=== PATIENT | female | born 1980 | race Two or more races ===

== ENCOUNTER 2017-11-23 18:16 | Emergency (ER) | payer MEDICAID ==
[~2017-11-23] VITALS: Ht 162.6 cm; Wt 68.0 kg
[2017-11-23 18:25] VITALS: BP 117/80
[2017-11-23] MEDS ORDERED: UNOBMED (18:30)
[2017-11-23] MEDS ORDERED: KEPPRA500 M4 ORAL (19:07)
[2017-11-23 19:09] LABS: BASOPHILS % (AUTO) 0.9 % (0.0-2.0); EOSINOPHILS % (AUTO) 1.8 % (0.0-3.0); HEMATOCRIT 37.4 % (37.0-47.0); HEMOGLOBIN 12.8 G/DL (12.0-16.0); LYMPHOCYTES % (AUTO) 37.1 % (20.0-45.0); MEAN CORPUSCULAR VOLUME 90 FL (80-99); MONOCYTES % (AUTO) 8.9 % (1.0-10.0); NEUTROPHILS % (AUTO) 51.3 % (45.0-75.0); PLATELET COUNT 254 K/UL (150-450); RED BLOOD COUNT 4.16 M/UL (4.20-5.40)
[2017-11-23 19:12] VITALS: BP 116/73
[2017-11-23 19:14] LABS: ANION GAP 7 mmol/L (5-15); BLOOD UREA NITROGEN 13 mg/dL (7-18); CALCIUM 9.1 MG/DL (8.5-10.1); CARBON DIOXIDE 25 MMOL/L (21-32); CHLORIDE 107 MMOL/L (98-107); CREATININE 1.3 MG/DL (0.55-1.30); POTASSIUM 3.9 MMOL/L (3.5-5.1); SODIUM 139 MMOL/L (136-145)
[2017-11-23 19:18] LABS: ALANINE AMINOTRANSFERASE 107 U/L (12-78); ALBUMIN 3.6 G/DL (3.4-5.0); ALBUMIN/GLOBULIN RATIO 0.9 (1.0-2.7); ALKALINE PHOSPHATASE 89 U/L (46-116); ASPARTATE AMINO TRANSFERASE 45 U/L (15-37); BILIRUBIN,TOTAL 0.3 MG/DL (0.2-1.0)
[2017-11-23] MEDS ORDERED: KEPPRA1000 MG ORAL (19:42)
--- NOTE | 2017-11-23 19:43 | Emergency Room Report ---
History of Present Illness General Chief Complaint: Seizure Source: Patient Present Illness HPI This patient comes in post-ictal. Later her son came to ED and relates two witnessed tonic-clonic sz. Mom has remote history of sz but starting about a month ago started getting them frequently. Most recent prior to today was three days ago and day before that. She had CT head at [facility] four days ago acc to patient. Since then no fever, no trauma. Was started on Keppra 500 BID and has been compliant. No shortness of breath, no travel history, no leg swelling, no chest pain, no diaphoresis, no exertional complaints, no nausea, no vomiting, no diarrhea, no abdominal pain. Tolerating po fine, normal urinary output, normal bm. No syncope, LOC, dizziness, lightheadedness, headache. No recent surgery. Allergies: Coded Allergies: UNABLE TO ASSESS (Unverified , 11/23/17) Patient History Last Menstrual Period: unknown Nursing Documentation-[facility] Past Medical History: No History, Except For Hx Gastrointestinal Problems: Yes - stomach tumor Hx Seizures: Yes Review of Systems Constitutional: Reports: no symptoms Eye: Reports: no symptoms ENT: Reports: no symptoms Respiratory: Reports: no symptoms Cardiovascular: Reports: no symptoms Gastrointestinal: Reports: no symptoms Genitourinary: Reports: no symptoms Musculoskeletal: Reports: no symptoms Skin: Reports: no symptoms Psychiatric: Reports: no symptoms Neurological: Reports: no symptoms Endocrine: Reports: no symptoms Hematologic/Lymphatic: Reports: no symptoms Allergic: Reports: no symptoms Physical Exam Vital Signs Date Time Temp Pulse Resp B/P (MAP) Pulse Ox O2 Delivery O2 Flow Rate FiO2 11/23/17 18:19 97.7 67 16 95/67 99 Room Air 97.7 11/23/17 19:12 2.0 Sp02 EP Interpretation: reviewed, normal General Appearance: normal inspection, well appearing, no apparent distress, alert, GCS 15, non-toxic Head: normocephalic, atraumatic Eyes: bilateral eye normal inspection, bilateral eye PERRL, bilateral eye EOMI ENT: normal ENT inspection, hearing grossly normal, normal pharynx, no angioedema, normal voice, moist mucus membranes Neck: normal inspection, full range of motion, supple, no meningismus, no bony tend Respiratory: normal inspection, lungs clear, normal breath sounds, no rhonchi, no respiratory distress, no retraction, no accessory muscle use, no wheezing Cardiovascular #1: normal inspection, regular rate, rhythm, no edema Gastrointestinal: normal inspection, normal bowel sounds, non tender, soft, no mass, non-distended Musculoskeletal: gait/station normal, normal range of motion Neurologic: normal inspection, alert, oriented x3, responsive, motor strength/ tone normal Psychiatric: normal inspection, judgement/insight normal, memory normal Suicide Risk Assessment: Suicidal Ideation: No Had intent to initiate attempt: No Pt's plan for suicide attempt: No Has means to complete attempt: No Skin: normal inspection, normal color, no rash, warm/dry Medical Decision Making Diagnostic Impression: Primary Impression: Seizure ER Course stable here, will give IV Keppra 1000 and increase to 1000 BID. pt. has neuro appt. on Saturday (two days) no need for repetitive ct head. Last Vital Signs Date Time Temp Pulse Resp B/P (MAP) Pulse Ox O2 Delivery O2 Flow Rate FiO2 11/23/17 19:12 98.0 61 14 116/73 100 Nasal Cannula 2.0 98.0 Disposition: HOME, SELF-CARE Condition: Stable Scripts Levetiracetam (KEPPRA) 1,000 Mg Tablet 1000 MG ORAL BID, #60 TAB 0 Refills Prov: Cayetano Urias M.D. 11/23/17 Patient Instructions: Seizure, Adult Cayetano Urias M.D. Nov 23, 2017 19:43
[2017-11-23] MEDS ORDERED: levETIRAcetam 1,000mg/NS100ml 100 ML IVPB ONE (19:45)
[2017-11-23 20:50] VITALS: BP 102/58
[2017-11-23 20:52] VITALS: BP 102/58
== END 2017-11-23 20:50 | disposition home or self-care (01) ==
LOC: EDBD 18:16 → EMR 19:00
DX: G40.909 Epilepsy, unspecified, not intractable, without status epilepticus (principal)
CPT/HCPCS: 36415; 80053; 80185; 80307; 85025; 96374; 99283; J1953

== ENCOUNTER 2020-05-21 15:20 | Emergency (ER) | payer MEDICAID ==
[~2020-05-21] VITALS: Ht 167.6 cm; Wt 72.6 kg
[~2020-05-21 15:20] MED LIST: KEPPRA1000 MG ORAL; KEPPRA500 M4 ORAL; UNOBMED
[2020-05-21 15:38] VITALS: BP 126/77
[2020-05-21 16:11] LABS: APPEARANCE,URINE SLIGHTLY CLOUDY; BILIRUBIN, URINE NEGATIVE (NEGATIVE); GLUCOSE, URINE (UA) NEGATIVE (NEGATIVE); KETONES,URINE NEGATIVE (NEGATIVE); LEUKOCYTE ESTERASE ,URINE NEGATIVE (NEGATIVE); NITRITE,URINE NEGATIVE (NEGATIVE); PH,URINE 5 (4.5-8.0); PROTEIN,URINE NEGATIVE (NEGATIVE); UROBILINOGEN,URINE NORMAL MG/DL (0.0-1.0)
[2020-05-21 16:12] LABS: COLOR,URINE YELLOW
[2020-05-21 16:46] LABS: BASOPHILS % (AUTO) 0.7 % (0.0-2.0); EOSINOPHILS % (AUTO) 0.6 % (0.0-3.0); HEMATOCRIT 34.6 % (37.0-47.0); HEMOGLOBIN 11.3 G/DL (12.0-16.0); LYMPHOCYTES % (AUTO) 24.9 % (20.0-45.0); MEAN CORPUSCULAR VOLUME 97 FL (80-99); NEUTROPHILS % (AUTO) 67.8 % (45.0-75.0); PLATELET COUNT 231 K/UL (150-450); RED BLOOD COUNT 3.55 M/UL (4.20-5.40); RED CELL DISTRIBUTION WIDTH 13.3 % (11.6-14.8); WHITE BLOOD COUNT 12.5 K/UL (4.8-10.8)
[2020-05-21 16:55] LABS: CALCIUM 8.7 MG/DL (8.5-10.1); CREATININE 1.2 MG/DL (0.55-1.30); POTASSIUM 3.5 MMOL/L (3.5-5.1)
[2020-05-21 17:00] LABS: ALBUMIN 3.3 G/DL (3.4-5.0); ALBUMIN/GLOBULIN RATIO 0.9 (1.0-2.7); BILIRUBIN,TOTAL 0.8 MG/DL (0.2-1.0)
--- NOTE | 2020-05-21 17:08 | Diagnostic Imaging Report ---
EXAM: CT Abdomen and Pelvis Without Intravenous Contrast CLINICAL HISTORY: PAIN TECHNIQUE: Axial computed tomography images of the abdomen and pelvis without intravenous contrast. CTDI is 5.00 mGy and DLP is 285.70 mGy-cm. One or more of the following dose reduction techniques were used: automated exposure control, adjustment of the mA and/or kV according to patient size, use of iterative reconstruction technique. COMPARISON: No relevant prior studies available. FINDINGS: Lung bases: Unremarkable. ABDOMEN: Liver: Unremarkable Gallbladder and bile ducts: Cholecystectomy. Pancreas: Unremarkable. Spleen: Unremarkable. Adrenals: Unremarkable. Kidneys and ureters: No renal calculi or obstructive changes. Stomach and bowel: No micha mural thickening. Nonobstructive bowel gas pattern. PELVIS: Appendix: No evidence of appendicitis. Appendix and cecum are located in the right upper abdomen Bladder: Unremarkable. Reproductive: Dominant follicle in the right ovary. ABDOMEN and PELVIS: Intraperitoneal space: Small amount of fluid in the pelvis. Bones/joints: No acute fracture. Soft tissues: Breast implants. Vasculature: Unremarkable. No abdominal aortic aneurysm. Lymph nodes: No enlarged lymph nodes. IMPRESSION: No evidence of appendicitis.
[2020-05-21] MEDS ORDERED: Ketorolac 30mg Inj IV ONE (17:30)
--- NOTE | 2020-05-21 17:30 | Emergency Room Report ---
History of Present Illness General Chief Complaint: Abdominal Pain Source: Patient Present Illness HPI 40 YO female presents to the ED c/o 12/20 in severity epigastric pain and RLQ pain with N & V x 3 days. Denies fevers or chills. Pt. reports LMP difficult to determine as she is on the depo shot and does not get periods. She was supposed to receive another one at the end of mar/begining of Apr which she was unable to receive. pt. reports 2 days of spotting 2 weeks ago, and spotting once this past Sat. Pt. suspicious for as she has been very "turned off" by the sight and smell of almost all foods. Pt. reports she still has appendix and gallbladder. She reports hx of gastritis in the past. She Denies blood in the vomit or stool. She denies diarrhea, constipation or dark tarry stools. She denies vaginal DC, urinary frequency, urgency or hematuria. She took OTC herbal anti-nausea medication with no relief. Allergies: Coded Allergies: UNABLE TO ASSESS (Unverified , 11/23/17) COVID-19 Screening Contact w/high risk pt: No Experienced COVID-19 symptoms?: Yes COVID-19 Testing performed CUSTOMER SERVICE REP: No Patient History Past Medical History: see triage record Past Surgical History: none Pertinent Family History: none Now: No Reviewed Nursing Documentation: PMH: Agreed; PSxH: Agreed Nursing Documentation-PMH Past Medical History: No Stated History Hx Gastrointestinal Problems: Yes - stomach tumor Hx Seizures: Yes Review of Systems All Other Systems: negative except mentioned in HPI Physical Exam Vital Signs Date Time Temp Pulse Resp B/P (MAP) Pulse Ox O2 Delivery O2 Flow Rate FiO2 05/21/20 15:31 98.8 75 18 126/77 (93) 96 Room Air Sp02 EP Interpretation: reviewed, normal General Appearance: no apparent distress, alert, GCS 15, non-toxic Head: normocephalic, atraumatic Eyes: bilateral eye normal inspection, bilateral eye PERRL ENT: hearing grossly normal, normal voice Neck: full range of motion Respiratory: lungs clear, normal breath sounds, speaking full sentences Cardiovascular #1: regular rate, rhythm Gastrointestinal: normal bowel sounds, soft, non-distended, no guarding, tenderness - upper portion of the RLQ tenderness, no adnexal ttp. no rebound. Genitourinary: normal inspection, no CVA tenderness Musculoskeletal: normal range of motion, gait/station normal, non-tender Neurologic: alert, motor strength/tone normal, oriented x3, sensory intact, responsive, speech normal Psychiatric: judgement/insight normal Skin: normal color Medical Decision Making PA Attestation Dr. Nayak is my supervising Physician whom patient management has been discussed with. Diagnostic Impression: Primary Impression: Vomiting Qualified Codes: R11.2 - Nausea with vomiting, unspecified Additional Impressions: Abdominal pain Qualified Codes: R10.31 - Right lower quadrant pain Gastritis Qualified Codes: K29.00 - Acute gastritis without bleeding ER Course 40 YO female presents to the ED c/o 12/20 in severity epigastric pain and RLQ pain with N & V x 3 days. Denies fevers or chills. Pt. reports LMP difficult to determine as she is on the depo shot and does not get periods. She was supposed to receive another one at the end of mar/begining of Apr which she was unable to receive. pt. reports 2 days of spotting 2 weeks ago, and spotting once this past Sat. Pt. suspicious for as she has been very "turned off" by the sight and smell of almost all foods. Pt. reports she still has appendix and gallbladder. She reports hx of gastritis in the past. She Denies blood in the vomit or stool. She denies diarrhea, constipation or dark tarry stools. She denies vaginal DC, urinary frequency, urgency or hematuria. She took OTC herbal anti-nausea medication with no relief. Ddx considered but are not limited to Diverticulitis, acute appendicitis , diarrhea,UC, PUD, GE, pancreatitis, gallstone, ovarian torsion, ectopic , PID tubo-ovarian abscess. Vital signs: are WNL, pt. is afebrile H&PE are most consistent with gastritis or possible . Overall patient is nontoxic in appearance in no acute distress not actively vomiting. ORDERS: -CBC: WBC 12.5 - CMP, LIPASE: WNL -UA: Most indicative of contamination: presence of equal amounts of bacteria and squamous cells, no elevation in inflammatory markers, nitrite negative. -URINE HCG: Negative ED INTERVENTIONS: -PO zofran 4mg. /Pepcid, Fluids-- Upon re-evaluation Pt. reports her symptoms have improved significantly, and are almost completely subsided. -Toradol 15mg IV . Pt. -I do not identify an emergent condition at this time. With current presentation, pt. is stable for close outpatient follow up and conservative treatment. D/w pt. to return promptly to ED with worsening or new symptoms.- Pt. verbalizes' understanding and agreement with proposed treatment plan. DISCHARGE: At this time pt. is stable for d/c to home. Will provide printed patient care instructions, and any necessary prescriptions. Care plan and follow up instructions have been discussed with the patient prior to discharge. Labs Test 05/21/20 15:45 05/21/20 16:20 Urine Color Yellow Urine Appearance Slightly cloudy Urine pH 5 (4.5-8.0) Urine Specific [place] 1.015 (1.005-1.035) Urine Protein Negative (NEGATIVE) Urine Glucose (UA) Negative (NEGATIVE) Urine Ketones Negative (NEGATIVE) Urine Blood 1+ (NEGATIVE) Urine Nitrite Negative (NEGATIVE) Urine Bilirubin Negative (NEGATIVE) Urine Urobilinogen Normal MG/DL (0.0-1.0) Urine Leukocyte Esterase Negative (NEGATIVE) Urine RBC 2-4 /HPF (0 - 2) Urine WBC 0-2 /HPF (0 - 2) Urine Squamous Epithelial Cells Many /LPF (NONE/OCC) Urine Bacteria Few /HPF (NONE) Urine HCG, Qualitative Negative (NEGATIVE) White Blood Count 12.5 K/UL (4.8-10.8) Red Blood Count 3.55 M/UL (4.20-5.40) Hemoglobin 11.3 G/DL (12.0-16.0) Hematocrit 34.6 % (37.0-47.0) Mean Corpuscular Volume 97 FL (80-99) Mean Corpuscular Hemoglobin 31.8 PG (27.0-31.0) Mean Corpuscular Hemoglobin Concent 32.6 G/DL (32.0-36.0) Red Cell Distribution Width 13.3 % (11.6-14.8) Platelet Count 231 K/UL (150-450) Mean Platelet Volume 6.5 FL (6.5-10.1) Neutrophils (%) (Auto) 67.8 % (45.0-75.0) Lymphocytes (%) (Auto) 24.9 % (20.0-45.0) Monocytes (%) (Auto) 6.0 % (1.0-10.0) Eosinophils (%) (Auto) 0.6 % (0.0-3.0) Basophils (%) (Auto) 0.7 % (0.0-2.0) Sodium Level 141 MMOL/L (136-145) Potassium Level 3.5 MMOL/L (3.5-5.1) Chloride Level 106 MMOL/L (98-107) Carbon Dioxide Level 25 MMOL/L (21-32) Anion Gap 10 mmol/L (5-15) Blood Urea Nitrogen 14 mg/dL (7-18) Creatinine 1.2 MG/DL (0.55-1.30) Estimat Glomerular Filtration Rate 50.0 mL/min (>60) Glucose Level 91 MG/DL (74-106) Calcium Level 8.7 MG/DL (8.5-10.1) Total Bilirubin 0.8 MG/DL (0.2-1.0) Aspartate Amino Transf (AST/SGOT) 30 U/L (15-37) Alanine Aminotransferase (ALT/SGPT) 43 U/L (12-78) Alkaline Phosphatase 68 U/L (46-116) Total Protein 7.0 G/DL (6.4-8.2) Albumin 3.3 G/DL (3.4-5.0) Globulin 3.7 g/dL Albumin/Globulin Ratio 0.9 (1.0-2.7) Lipase 119 U/L (73-393) CT/MRI/US Diagnostic Results CT/MRI/US Diagnostic Results : Imaging Test Ordered: CT abdomen and Pelvis w/o contrast Impression " No evidence of appendicitis, some mild free fluid in the pelvis and a prom inent follicle in the right ovary." --Per official radiology report- Please see report for specific details. Last Vital Signs Date Time Temp Pulse Resp B/P (MAP) Pulse Ox O2 Delivery O2 Flow Rate FiO2 05/21/20 15:38 75 18 Room Air 05/21/20 15:38 98.8 126/77 96 Disposition: HOME, SELF-CARE Condition: Stable Scripts Famotidine* (Pepcid 20mg tablet*) 20 Mg Tablet 20 MG ORAL TWICE A DAY for Gerd, #20 TAB 0 Refills Prov: Hannah Moody 05/21/20 Ondansetron Odt* (ZOFRAN ODT*) 4 Mg Tab.rapdis 4 MG BC EVERY 8 HOURS PRN for Nausea & Vomiting, #10 TAB 0 Refills Prov: Hannah Moody 05/21/20 Referrals: [facility],REFERRING (PCP) Patient Instructions: Abdominal Pain, Adult, Nausea and Vomiting, Adult, [id number] Additional Instructions: Take medications as directed. Follow up with a Primary Care Provider in 3-5 days, even if your symptoms have resolved. Return sooner to ED if new symptoms occur, or current symptoms become worse. - Please note that this Emergency Department Report was dictated using [employer] database administrator technology software, occasionally this can lead to erroneous entry secondary to interpretation by the dictation equipment. Hannah Moody May 21, 2020 17:30
[2020-05-21] MEDS ORDERED: ONDANSETRON ODT4 MG BC (17:33)
[2020-05-21] MEDS ORDERED: FAMOTIDINE20 MG ORAL (17:33)
[2020-05-21 17:50] VITALS: BP 126/77
== END 2020-05-21 18:09 | disposition home or self-care (01) ==
LOC: EMR 15:49
DX: K29.00 Acute gastritis without bleeding (principal); R11.2 Nausea with vomiting, unspecified; R10.31 Right lower quadrant pain; G40.909 Epilepsy, unspecified, not intractable, without status epilepticus; Z79.899 Other long term (current) drug therapy
CPT/HCPCS: 36415; 74176; 80053; 81003; 81025; 83690; 85025; 96374; 96375; J1885; J2405; Z7502; 99284